=== PATIENT | male | born 1995 | race African-American/Black ===

== ENCOUNTER 2021-08-06 13:08 | Emergency (ER) | payer OTHER ==
[~2021-08-06] VITALS: Ht 167.6 cm; Wt 129.3 kg
[2021-08-06] MEDS ORDERED: EPINEPHRINE 0.3 MG/0.3 ML PEN.INJCTR IM STA (13:26)
[2021-08-06] MEDS ORDERED: FAMOTIDINE 20 MG TAB PO ONE (13:30)
[2021-08-06] MEDS ORDERED: DEXAMETHASONE SOD PHOS 10 MG/1 ML VIAL IV ONE (13:30)
[2021-08-06] MEDS ORDERED: DIPHENHYDRAMINE HCL 25 MG CAP PO ONE (13:30)
[2021-08-06] MEDS ORDERED: EPINEPHRINE HCL 1:1000 1ML 1 MG/ML AMP IM STA (14:02)
[2021-08-06] MEDS ORDERED: EPINEPHRIN0.3 MG/0.3 IM (15:34)
[2021-08-06] MEDS ORDERED: ZYRTEC10 M3 PO (15:34)
[2021-08-06] MEDS ORDERED: PREDNISONE50 MG PO (15:34)
[2021-08-06] MEDS ORDERED: PEPCID20 MG PO (15:34)
== END 2021-08-06 15:52 | disposition home or self-care (01) ==
LOC: ER 13:12
DX: T78.3XXA Angioneurotic edema, initial encounter (principal); T78.09XA Anaphylactic reaction due to other food products, initial encounter
CPT/HCPCS: 99284; J0171; J1100

== ENCOUNTER 2022-04-12 15:55 | Emergency (ER) | payer OTHER ==
[~2022-04-12] VITALS: Ht 167.6 cm; Wt 129.3 kg
[~2022-04-12 15:55] MED LIST: EPINEPHRIN0.3 MG/0.3 IM; PEPCID20 MG PO; PREDNISONE50 MG PO; ZYRTEC10 M3 PO
== END 2022-04-12 16:16 | disposition home or self-care (01) ==
LOC: ER 16:03
DX: H61.21 Impacted cerumen, right ear (principal)
CPT/HCPCS: 99282

== ENCOUNTER 2022-11-06 16:15 | Emergency (ER) | payer MEDICARE, OTHER ==
[~2022-11-06] VITALS: Ht 167.6 cm; Wt 129.3 kg
[2022-11-06 16:26] VITALS: O2SAT 100
== END 2022-11-06 18:45 | disposition home or self-care (01) ==
LOC: ER 17:01
DX: R05.9 Cough, unspecified (principal); J06.9 Acute upper respiratory infection, unspecified; Z20.822 Contact with and (suspected) exposure to COVID-19
CPT/HCPCS: 71046; 93005; 99284; U0002

== ENCOUNTER 2023-11-09 10:45 | Emergency (ER) | payer OTHER ==
[~2023-11-09] VITALS: Ht 165.1 cm; Wt 141.5 kg
[2023-11-09 10:45] VITALS: O2SAT 100
[2023-11-09] MEDS ORDERED: AMOX TR-K CLV1 EAC2 PO (12:13)
[2023-11-09] MEDS ORDERED: MEDROL4 M2 PO (12:16)
== END 2023-11-09 12:15 | disposition home or self-care (01) ==
LOC: ER 12:11
DX: R05.9 Cough, unspecified (principal); J02.0 Streptococcal pharyngitis
CPT/HCPCS: 99282

== ENCOUNTER 2024-11-12 19:17 | Emergency (ER) | payer MEDICARE, OTHER ==
[~2024-11-12] VITALS: Ht 165.1 cm; Wt 144.2 kg
[~2024-11-12 19:17] MED LIST changes: +AMOX TR-K CLV1 EAC2 PO; +MEDROL4 M2 PO
[2024-11-12 20:03] LABS: STREPTOCOCCUS GRP A ANTIGEN POSITIVE (NEGATIVE)
[2024-11-12 20:12] LABS: CORONAVIRUS COVID-19 AG NEGATIVE (NEGATIVE); INFLUENZA A AG NEGATIVE (NEGATIVE); INFLUENZA B AG NEGATIVE (NEGATIVE)
[2024-11-12] MEDS ORDERED: VENTOLIN HFA18 GM INH (20:30)
[2024-11-12] MEDS ORDERED: PREDNISONE20 MG PO (20:30)
[2024-11-12] MEDS ORDERED: AZITHROMYCIN250 MG PO (20:30)
[2024-11-12 20:33] VITALS: PULSE 96; RESP 16; TEMP 99.2; O2SAT 100
== END 2024-11-12 20:34 | disposition home or self-care (01) ==
LOC: ER 19:30
DX: R05.9 Cough, unspecified (principal); J02.0 Streptococcal pharyngitis; R53.81 Other malaise; Z11.52 Encounter for screening for COVID-19
CPT/HCPCS: 71046; 83518; 99283